=== PATIENT | female | born 1970 ===

== ENCOUNTER 2018-02-12 14:58 | Inpatient (IN) | payer OTHER ==
[2018-02-12] MEDS ORDERED: Albuterol-Ipratrop 3 mg / 0.5 (3 ml) UD INH STA (15:38)
[2018-02-12 15:58] LABS: HCG,QUALITATIVE URINE NEGATIVE (NEGATIVE); SQUAMOUS EPITHIAL < 1 /hpf (0-5); URINE BACTERIA RARE (<OCC); URINE BILIRUBIN NEGATIVE (NEGATIVE); URINE BLOOD NEGATIVE (NEGATIVE); URINE CLARITY Clear (Clear); URINE COLOR Straw (YELLOW); URINE GLUCOSE (UA) NORMAL (Normal); URINE LEUKOCYTE ESTERASE NEG Leu/uL (Negative); URINE PROTEIN NEGATIVE (NEGATIVE); URINE UROBILINOGEN NORMAL mg/dL (0.2-1.0)
[2018-02-12 16:16] LABS: BASO # 0.1 K/uL (0.0-0.2); BASO % 0.5 % (0.0-2.0); EOS # 0.3 K/uL (0.0-0.7); EOS % 2.3 % (0.0-4.0); HEMOGLOBIN 14.3 g/dL (11.0-16.0); LYMPH # 3.4 K/uL (1.0-4.3); LYMPH % 25.5 % (20.0-40.0); MEAN CELL VOLUME 94.9 fL (81.0-99.0); MEAN CORPUSCULAR HEMOGLOBIN 30.6 pg (27.0-31.0); MEAN CORPUSCULAR HGB CONC 32.2 g/dL (33.0-37.0); MEAN PLATELET VOLUME 8.4 fL (7.2-11.7); MONO # 0.9 K/uL (0.0-0.8); NEUT # 8.6 K/uL (1.8-7.0); NEUT % 64.7 % (50.0-75.0); RBC 4.68 Mil/uL (3.80-5.20); RED CELL DISTRIBUTION WIDTH 13.8 % (11.5-14.5); WHITE BLOOD COUNT 13.3 K/uL (4.8-10.8)
[2018-02-12] MEDS ORDERED: Albuterol-Ipratrop 3 mg / 0.5 (3 ml) UD ONE (16:16)
[2018-02-12 16:23] LABS: PHENCYCLIDINE, UR NEGATIVE (NEGATIVE)
[2018-02-12 16:24] LABS: BARBITURATES, UR POSITIVE (NEGATIVE); BENZODIAZEPINES, UR POSITIVE (NEGATIVE); OPIATES, UR POSITIVE (NEGATIVE)
[2018-02-12 16:29] LABS: ALB/GLOB RATIO 0.9 (1.0-2.1); ALBUMIN 4.1 g/dL (3.5-5.0); ALT/SGPT 29 U/L (9-52); AST/SGOT 32 U/L (14-36); BLOOD UREA NITROGEN 10 mg/dL (7-17); CALCIUM 8.4 mg/dl (8.6-10.4); GFR NON-AFRICAN AMERICAN > 60
--- NOTE | 2018-02-12 17:34 | C.PDOC ---
History Of Present Illness 47 year old female with a PMHx of epilepsy and COPD (complaint with meds), presents to the ED requesting detox from heroin. She denies any IV drug use. Patient denies any suicidal or homicidal ideation. Otherwise patient offers no medical complaints. PT admits to h/o home oxygen use, though has not used it since her move to [place]. Denies chest pain, sob, difficulty breathing or swallowing, leg swelling, tremors. Time Seen by Provider: 02/12/18 15:28 Chief Complaint (Nursing): Substance Abuse History Per: Patient History/Exam Limitations: no limitations Onset/Duration Of Symptoms: Days Current Symptoms Are (Timing): Still Present Modifying Factor(s): Other (Heroin) Associated Symptoms: denies: Suicidal Thoughts, Suicidal Plan Past Medical History Reviewed: Historical Data, Nursing Documentation, Vital Signs Vital Signs: Last Vital Signs Temp 98.5 F 02/12/18 17:03 Pulse 71 02/12/18 17:03 Resp 18 02/12/18 17:03 BP 100/66 02/12/18 17:03 Pulse Ox 98 02/12/18 17:13 - Medical History PMH: Asthma, COPD, Depression, Emphysema, HTN (no meds), Seizures Denies: Diabetes, Hepatitis, HIV, Sexually Transmitted Disease Surgical History: Cholecystectomy Family History: States: No Known Family Hx - Social History Hx Alcohol Use: No Hx Substance Use: Yes - Immunization History Hx Tetanus Toxoid Vaccination: No Hx Influenza Vaccination: No Hx Pneumococcal Vaccination: No Review Of Systems Except As Marked, All Systems Reviewed And Found Negative. Constitutional: Negative for: Fever Cardiovascular: Negative for: Chest Pain Gastrointestinal: Negative for: Vomiting, Abdominal Pain Psych: Positive for: Other (Substance abuse). Negative for: Suicidal ideation Physical Exam - Physical Exam Appears: Well, Non-toxic, No Acute Distress Skin: Normal Color, Warm, Dry Head: Atraumatic, Normacephalic Eye(s): bilateral: Normal Inspection, EOMI Nose: Normal Oral Mucosa: Moist Neck: Normal ROM, Supple Chest: Symmetrical Cardiovascular: Rhythm Regular Respiratory: No Accessory Muscle Use, Wheezing, Other (speaking in full sentences) Gastrointestinal/Abdominal: Normal Exam, Soft, No Tenderness Extremity: Normal ROM Extremity: Bilateral: Atraumatic, Normal Color And Temperature, Normal ROM Neurological/Psych: Oriented x3, Normal Speech, Other (No focal deficits) Gait: Steady ED Course And Treatment - Laboratory Results Result Diagrams: 02/12/18 16:03 02/12/18 16:03 O2 Sat by Pulse Oximetry: 98 (RA) Pulse Ox Interpretation: Normal Progress Note: Blood work and urine sent to the lab for medical clearance. Administered duoneb x1. On reevaluation patients symptoms are improved, states she does not want another nebulizer. Awaiting crisis evaluation and disposition. Pt is medically clear for psych admission though prednisone 40mg x 4 days suggested. Dilantin level is low, according to pt, she is complaint. Last seizure 3 weeks ago and do for EEG. SInce pt is being managed by neurology, suggested neurology consult and continue medication as ordered. Discussed with detention worker, patient to be admitted under Dr. Stern for detox. Disposition - Disposition Disposition: HOSPITALIZED Disposition Time: 18:00 Condition: STABLE - Clinical Impression Clinical Impression: Opioid dependence - PA / MACHINE HE[employer] SEAT [employer]TER / Resident Statement MD/DO has reviewed & agrees with the documentation as recorded. - Scribe Statement The provider has reviewed the documentation as recorded by the Scribe Adriane Batista All medical record entries made by the Almaibsissy were at my direction and per sonally dictated by me. I have reviewed the chart and agree that the record accurately reflects my personal performance of the history, physical exam, medical decision making, and the department course for this patient. I have also personally directed, reviewed, and agree with the discharge instructions and disposition.
--- NOTE | 2018-02-12 17:51 | PCM.BM ---
<Lambert Abbott - Last Filed: 02/12/18 17:50> Treatment Plan Problems - Problems identified on initial assessmt potential for opiate withdrawal Date Initiated: 02/12/18 Time Initiated: 17:51 Assessment reference: Treatment assets and liabiliti Patient Assests: adapts well, ADL independent, cognitively intact Patient Liabilities: substance abuse, medical problems - Milieu Protocol Maintain good personal hygiene: daily Encourage regular showers, daily Remind patient to perform daily oral care, daily Assist patient to perform ADL's Conduct patient checks and document Observation sheet: Q15 minutes Maintain personal safety: every shift Educate patient to report safety concerns to staff, every shift Monitor environment for contraband/sharps Medication safety: Monitor for expected outcome, potential side effects: every shift, Assess barriers to learning: every shift, Assess readiness for medication education: every shift <Raphael Marin - Last Filed: 02/13/18 14:13> - Diagnosis (1) Opioid dependence Status: Acute Interventions: 02/13/18 14:13 * Assess 7x/week regarding severity of withdrawal * Educate regarding risks, benefits, side effects and alternatives of medications * Use Motivational Interviewing for abstinence * Use CBT for relapse prevention * Medication management for withdrawal symptoms * Encourage medication assisted treatment * <Sonal Quintero - Last Filed: 02/14/18 13:31> Family Contact Family involvement: Jesús/SO not involved - Goals for Treatment Patient goals for treatment: Complete detox and transition to an outpatient counseling program. Discharge/Continuing Care - Education Needs Education Needs: Patient Medication, Patient Diagnosis/Disease Process, Patient Coping Skills, Patient Anger Management skills, Patient Placement options, Patient Community resources, Patient Other (childhood trauma) - Discharge Discharge Criteria: No longer exhibiting s/s of withdrawal, Reduction of target symptoms Discharge to:: Home, With Family - Treatment Team Participation Patient/Family/SO Statement: 02/14/18 13:30 "I wanna go to an outpatient." Discussed with Family/SO: No Was Patient/Family/SO present at Treatment Team Meeting: Yes
[2018-02-12] MEDS ORDERED: Albuterol-Ipratrop 3 mg / 0.5 (3 ml) UD INH PRN (19:07)
[2018-02-12] MEDS ORDERED: Magnesium Hydroxide Susp 30 ml UD PO PRN (20:17)
[2018-02-12] MEDS ORDERED: Aluminum Hydroxide/Magnesium Hydroxide Susp (30 mL) PO PRN (20:17)
[2018-02-12] MEDS ORDERED: Albuterol HFA 90 mcg/actuation (8 g) INH PRN (20:40)
[2018-02-12] MEDS: LATUDA 40MG PO SCH (23:11)
[2018-02-13] MEDS ORDERED: Buprenorphine Hydrochloride 2 mg SL ONE ×3 (01:51→17:00)
[2018-02-13] MEDS: Potassium Chloride 10 mEq ER Tab PO SCH (08:37)
[2018-02-13] MEDS ORDERED: buPROPion 150 mg/24 Hours XL Tab PO SCH (10:00)
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
[2018-02-13] MEDS: LATUDA 40MG PO SCH (21:06)
[2018-02-14] MEDS: Potassium Chloride 10 mEq ER Tab PO SCH (08:51)
[2018-02-14] MEDS: Buprenorphine Hydrochloride 2 mg SL SCH (10:04)
--- NOTE | 2018-02-14 14:24 | PCM.PYCHPN ---
Psychiatric Progress Note - Psychiatric Progress Note Patient seen today, length of contact: 16 min Patient Chief Complaint: "I am very anxious" Problems Identified/Issues Discussed: The pt is seen, chart reviewed, case discussed with staff. Support and psychoeducation given, CBT and TX used briefly No new symptoms reported, improving slowly and needs more time No SEs from medications, risks discussed. After care discussed Medication Change: Yes (detox changes daily) Medical Record Reviewed: Yes Mental Status Examination - Cognitive Function Orientation: Person, Place, Situation, Time Memory: Intact Attention: WNL Concentration: Poor Association: WNL Fund of Knowledge: WNL - Mood Mood: Depressed, Anxious (Very) - Affect Affect: Broad - Speech Speech: Appropriate - Formal Thought Process Formal Thought Process: No Impairment - Suicidal Ideation Suicidal Ideation: No - Homicidal Ideation Homicidal Ideation: No Goal/Treatment Plan - Goal/Treatment Plan Need for Continued Stay: Discharge may exacerbated symptoms, Severe functional impairment Progress Toward Problem(s) and Goals/Treatment Plan: Taper with Subutex Discontinue Wellbutrin due to seizure risk Continue Latuda Gabapentin for augmentation if needed As needed medications All risks, benefits and alternatives of the meds discussed, and the pt agreed and understood. Attend groups and activities Supportive therapy and psychoeducation TX for abstinence CBT for relapse prevention Encourage MAT Refer to rehab or IOP, and self-help groups Teach healthy lifestyle methods, i.e. diet, exercise, meditation Smoking cessation with TX Nicotine patch if needed
[2018-02-14] MEDS: Vitamins A & D Oint UD Foilpak TOP PRN (19:28)
[2018-02-14] MEDS: LATUDA 40MG PO SCH (21:36)
[2018-02-15] MEDS: Potassium Chloride 10 mEq ER Tab PO SCH (08:55)
[2018-02-15] MEDS: Vitamins A & D Oint UD Foilpak TOP PRN (09:51)
[2018-02-15] MEDS: Buprenorphine Hydrochloride 2 mg SL SCH (09:54)
--- NOTE | 2018-02-15 12:11 | PCM.PYCHPN ---
Psychiatric Progress Note - Psychiatric Progress Note Patient seen today, length of contact: 16 min Patient Chief Complaint: "I am very anxious" Problems Identified/Issues Discussed: The pt is seen, chart reviewed, case discussed with staff. Support and psychoeducation given, CBT and MO used briefly No new symptoms reported, improving slowly and needs more time No SEs from medications, risks discussed. After care discussed Medication Change: Yes (detox changes daily) Medical Record Reviewed: Yes Mental Status Examination - Cognitive Function Orientation: Person, Place, Situation, Time Memory: Intact Attention: WNL Concentration: Poor Association: WNL Fund of Knowledge: WNL - Mood Mood: Depressed, Anxious (Very) - Affect Affect: Broad - Speech Speech: Appropriate - Formal Thought Process Formal Thought Process: No Impairment - Suicidal Ideation Suicidal Ideation: No - Homicidal Ideation Homicidal Ideation: No Goal/Treatment Plan - Goal/Treatment Plan Need for Continued Stay: Discharge may exacerbated symptoms, Severe functional impairment Progress Toward Problem(s) and Goals/Treatment Plan: Taper with Subutex Discontinue Wellbutrin due to seizure risk Continue Latuda Gabapentin for augmentation if needed As needed medications All risks, benefits and alternatives of the meds discussed, and the pt agreed and understood. Attend groups and activities Supportive therapy and psychoeducation [place] for abstinence CBT for relapse prevention Encourage MAT Refer to rehab or IOP, and self-help groups Teach healthy lifestyle methods, i.e. diet, exercise, meditation Smoking cessation with [place] Nicotine patch if needed
[2018-02-15] MEDS: LATUDA 40MG PO SCH (21:12)
[2018-02-16] MEDS: Potassium Chloride 10 mEq ER Tab PO SCH (08:02)
[2018-02-16] MEDS: Buprenorphine Hydrochloride 2 mg SL SCH (09:45)
--- NOTE | 2018-02-16 13:18 | PCM.PYCHPN ---
Psychiatric Progress Note - Psychiatric Progress Note Patient seen today, length of contact: 16 min Patient Chief Complaint: "I am very anxious" Problems Identified/Issues Discussed: The pt is seen, chart reviewed, case discussed with staff. Support and psychoeducation given, CBT and [place] used briefly No new symptoms reported, improving slowly and needs more time No SEs from medications, risks discussed. After care discussed Medication Change: Yes (detox changes daily) Medical Record Reviewed: Yes Mental Status Examination - Cognitive Function Orientation: Person, Place, Situation, Time Memory: Intact Attention: WNL Concentration: Poor Association: WNL Fund of Knowledge: WNL - Mood Mood: Depressed, Anxious (Very) - Affect Affect: Broad - Speech Speech: Appropriate - Formal Thought Process Formal Thought Process: No Impairment - Suicidal Ideation Suicidal Ideation: No - Homicidal Ideation Homicidal Ideation: No Goal/Treatment Plan - Goal/Treatment Plan Need for Continued Stay: Discharge may exacerbated symptoms, Severe functional impairment Progress Toward Problem(s) and Goals/Treatment Plan: Taper with Subutex Discontinue Wellbutrin due to seizure risk Continue Latuda Gabapentin for augmentation if needed As needed medications All risks, benefits and alternatives of the meds discussed, and the pt agreed and understood. Attend groups and activities Supportive therapy and psychoeducation [place] for abstinence CBT for relapse prevention Encourage MAT Refer to rehab or IOP, and self-help groups Teach healthy lifestyle methods, i.e. diet, exercise, meditation Smoking cessation with [place] Nicotine patch if needed
[2018-02-16] MEDS: LATUDA 40MG PO SCH (21:42)
[2018-02-17] MEDS: Potassium Chloride 10 mEq ER Tab PO SCH (08:56)
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
[2018-02-17] MEDS: Buprenorphine Hydrochloride 2 mg SL SCH (10:00)
[2018-02-17 10:31] VITALS: BP 106/72; PULSE 60; RESP 16; TEMP 98.1; O2SAT 94
[2018-02-17 10:43] LABS: ALBUMIN 4.1 g/dL (3.5-5.0); ALT/SGPT 30 U/L (9-52); AST/SGOT 28 U/L (14-36); BLOOD UREA NITROGEN 15 mg/dL (7-17); CALCIUM 8.6 mg/dl (8.6-10.4); GFR NON-AFRICAN AMERICAN > 60
== END 2018-02-17 11:10 | disposition home or self-care (01) | DRG 744 ==
LOC: C.ER 14:58 → C.7D 17:27
DX: F11.23 Opioid dependence with withdrawal (principal); F33.2 Major depressive disorder, recurrent severe without psychotic features; J43.9 Emphysema, unspecified; F17.210 Nicotine dependence, cigarettes, uncomplicated; F41.1 Generalized anxiety disorder; F43.10 Post-traumatic stress disorder, unspecified; G40.909 Epilepsy, unspecified, not intractable, without status epilepticus; I10 Essential (primary) hypertension; Z99.81 Dependence on supplemental oxygen